=== PATIENT | female | born 1990 | race Caucasian/White ===

== ENCOUNTER → 2017-08-06 | Outpatient (REF) ==
[~2017-08-06] MED LIST: MULT-1335 PO; NORG1TAB61 PO; VENL100T21 PO
[2017-08-06 10:09] LABS: LDL CHOLESTEROL 57 mg/dl
== END ==
DX: Z02.9 Encounter for administrative examinations, unspecified (principal)

== ENCOUNTER 2018-07-29 18:54 | Emergency (ER) | payer OTHER ==
[2018-07-29 18:58] VITALS: BP 148/96
--- NOTE | 2018-07-29 19:01 | ER Report ---
History and Physical Time Seen By MD: 19:01 Hx. of Stated Complaint: PT BIT IN FACE BY HER [employer] BULLDOG. LACERATION AND RIGHT SIDE OF CHEEK. HPI/ROS CHIEF COMPLAINT: Dog bite, laceration HISTORY OF PRESENT ILLNESS: 28-year-old female patient presents to emergency room with complaint of laceration to the right cheek secondary to dog bite. She states that she was clipping her dogs toe nails and when he tried to get away she grabbed it. She states the doctor round and bit her on the cheek. Patient states that she is unsure of her last tetanus shot. She states that she did apply pressure to the wound. Allergies: Coded Allergies: No Known Drug Allergies (Verified , 07/29/18) Home Meds Active Scripts Amoxicillin/Pot Clav 875-125 Mg Tab (AUGMENTIN 875-125 TABLET) 1 Each Tablet, 1 TAB PO Q12H, #20 TAB Prov:FRANCIS COTE [employer] 07/29/18 Reported Medications Levothyroxine Sodium (LEVOTHYROXINE SODIUM) 75 Mcg Tablet, 75 MCG PO QODAY, TAB 07/29/18 Levothyroxine Sodium (LEVOTHYROXINE SODIUM) 50 Mcg Tablet, 50 MCG PO QODAY, TAB 07/29/18 [Oral Control] No Conflict Check 07/29/18 Multivitamins W-Minerals (Multiple Vitamin) 1 Tab Tablet, 1 TAB PO, 0 Refills 06/18/08 Discontinued Reported Medications Norgestrel-Ethinyl Estradiol (Lo/Ovral-28) 1 Tab Tablet, 1 TAB PO, 0 Refills 06/18/08 Venlafaxine Hcl (Effexor) 100 Mg Tablet, 150 MG PO QDAY, 0 Refills 06/18/08 Past Medical/Surgical History Patient has a past medical history of hypothyroidism. Patient denies any surgical history. Reviewed Nurses Notes: Yes Constitutional Vital Sign - Last 24 Hours 07/29/18 18:58 Temp 98.6 Pulse 94 Resp 16 B/P (MAP) 148/96 Pulse Ox 95 O2 Delivery Room Air Physical Exam General appearance: Alert no distress. Patient is tearful. Respiratory: Chest is non tender, lungs are clear to auscultation. Cardiac: Regular rate and rhythm. Skin: Patient has 3 cm laceration to the right cheek, she also has a more shallow abrasion to the upper right cheek, a smaller one also on the cheek and a small abrasion under the nose. DIFFERENTIAL DIAGNOSIS: After history and physical exam differential diagnosis was considered for laceration, dog bite Medical Decision Making ED Course/Re-evaluation ED Course Patient was admitted and examined, history of physical or pain. Differential diagnoses were considered. On examination lungs are clear, heart is regular. Patient does have a laceration and abrasion on the right cheek. The area was anesthetized and cleaned described below. Patient was unsure of her tetanus shot and so was given a tetanus booster. Patient has no known drug allergies and so will be started on Augmentin. Prescription was sent into her pharmacy. Patient will receive a dose here tonight as her pharmacy is closed. I discussed this patient verbalized understanding of plan. She is follow-up with her primary care provider in 5-7 days to have sutures removed. She is return to emergency room with any concerns. She is monitor for any signs of infection. Procedure: Laceration repair. Verbal consent was obtained from the patient. The 3 cm laceration on the right cheek was anesthetized in the usual fashion. The wound was scrubbed, draped and explored to its base with a gloved finger. There were no deep structures involved. No tendon injury was identified. The wound was repaired with 6 simple interrupted sutures using 6-0 Prolene material. The wound repair was simple. The procedure was performed by myself. Decision to Disposition Date: Jul 29, 2018 Decision to Disposition Time: 19:59 Depart Departure Latest Vital Signs Vital Signs Date Time Temp Pulse Resp B/P (MAP) Pulse Ox O2 Delivery O2 Flow Rate FiO2 07/29/18 18:58 98.6 94 16 148/96 95 Room Air Impression: Primary Impression: Dog bite Additional Impression: Laceration of face Condition: Improved Disposition: HOME OR SELF-CARE New Scripts Amoxicillin/Pot Clav 875-125 Mg Tab (AUGMENTIN 875-125 TABLET) 1 Each Tablet 1 TAB PO Q12H, #20 TAB Prov: FRANCIS COTE 07/29/18 Patient Instructions: Animal Bite (ED) Additional Instructions: Keep wound dry for 48 hours. Follow up with your primary care provider in the next 5-7 days to have sutures removed. Monitor for signs of infection; redness, swelling, heat, discharge, increasing pain or red streaking. Take Tylenol or Ibuprofen as needed for pain. Return to the ER with any concerns. Take the antibiotics as directed. If you don't like the scarring, I would recommend following up with a plastic surgeon. Problem Qualifiers Primary Impression: Dog bite Encounter type: initial encounter Qualified Codes: W54.0XXA - Bitten by dog, initial encounter Additional Impression: Laceration of face Encounter type: initial encounter Qualified Codes: S01.81XA - Laceration without foreign body of other part of head, initial encounter FRANCIS COTE Jul 29, 2018 19:01
[2018-07-29] MEDS ORDERED: LEVO50TA86 PO (19:07)
[2018-07-29] MEDS ORDERED: LEVO75TA73 PO (19:07)
[2018-07-29] MEDS ORDERED: ORAL BIRTH CONTROL (19:07)
[2018-07-29] MEDS ORDERED: DIPHTH/TETANUS/ACEL. PERTUSSIS IM ONLY ONE (19:10)
[2018-07-29] MEDS ORDERED: AMOX-559 PO (19:24)
[2018-07-29] MEDS ORDERED: AMOX/CLAV 875 MG TAB PO ONE (19:30)
== END 2018-07-29 20:30 | disposition home or self-care (01) ==
LOC: ER 19:22
DX: S01.81XA Laceration without foreign body of other part of head, initial encounter (principal); W54.0XXA Bitten by dog, initial encounter
CPT/HCPCS: 90471; 90715; 99283

== ENCOUNTER → 2018-08-14 | Outpatient (REF) ==
[~2018-08-14] MED LIST changes: +AMOX-559 PO; +LEVO50TA86 PO; +LEVO75TA73 PO; +ORAL BIRTH CONTROL
[2018-08-14 08:50] LABS: LDL CHOLESTEROL 63 mg/dl
== END ==
DX: Z02.9 Encounter for administrative examinations, unspecified (principal)